=== PATIENT | female | born 1955 | race Caucasian/White ===

== ENCOUNTER 2019-02-02 21:28 | Emergency (ER) | payer MEDICAID ==
[~2019-02-02] VITALS: Ht 172.7 cm; Wt 58.2 kg
[2019-02-02 22:03] VITALS: BP 135/90
[2019-02-02] MEDS ORDERED: KETOROLAC TROMETHAMINE INJ 60 MG/2 ML VIAL IM ONE (22:59)
[2019-02-02] MEDS: KETOROLAC TROMETHAMINE INJ 60 MG/2 ML VIAL IM ONE (23:00)
[2019-02-02] MEDS ORDERED: CEPHALEXIN MONOHYDRATE 500 MG CAPSULE PO ONE (23:12)
[2019-02-02] MEDS: CEPHALEXIN MONOHYDRATE 500 MG CAPSULE PO ONE (23:15)
== END 2019-02-03 00:40 | disposition home or self-care (01) ==
LOC: ER 21:28
DX: Z48.01 Encounter for change or removal of surgical wound dressing (principal); R50.9 Fever, unspecified; Z98.890 Other specified postprocedural states; Z59.0 Homelessness
CPT/HCPCS: 96372; 99283; J1885

== ENCOUNTER 2019-07-05 02:39 | Inpatient (IN) | payer MEDICAID ==
[~2019-07-05] VITALS: Ht 170.2 cm; Wt 54.9 kg
[2019-07-05] MEDS ORDERED: VANCOMYCIN 1 GM VIAL ONE (02:59)
[2019-07-05] MEDS ORDERED: VANCOMYCIN 1 GM in IV D5W 250 ML IV ONE (03:00)
[2019-07-05] MEDS ORDERED: ONDANSETRON HCL/PF 4 MG/2 ML VIAL IVP ONE (03:00)
[2019-07-05] MEDS ORDERED: IV NS 0.9% 1,000 ML BAG IV ONE (03:00)
--- NOTE | 2019-07-05 03:40 | NUR ---
wound culture collected and sent to the lab
[2019-07-05] MEDS ORDERED: ONDANSETRON HCL/PF 4 MG/2 ML VIAL ONE (03:42)
--- NOTE | 2019-07-05 03:42 | NUR ---
MS 311-1
[2019-07-05] MEDS ORDERED: MORPHINE SULFATE INJ 2 MG/ML DISP.SYRIN ONE (03:43)
[2019-07-05 03:51] LABS: BASOPHILS # (AUTO) 0.1 /CMM (0.0-0.2); BASOPHILS % (AUTO) 0.5 % (0.0-2.0); HEMATOCRIT 34 % (33-45); HEMOGLOBIN 11.3 g/dL (11.5-14.8); LYMPHOCYTES # (AUTO) 0.7 /CMM (0.8-4.8); LYMPHOCYTES % (AUTO) 5.4 % (20.0-44.0); MEAN CORPUSCULAR HGB CONC 33 g/dl (31.0-36.0); MEAN CORPUSCULAR VOLUME 89 fL (82-100); MONOCYTES # (AUTO) 1.2 /CMM (0.1-1.30); MONOCYTES % (AUTO) 10.2 % (2.0-12.0); NEUTROPHILS # (AUTO) 10.2 /CMM (1.8-8.9); NEUTROPHILS % (AUTO) 82.9 % (43.0-81.0); PLATELET COUNT (AUTO) 422 /CMM (150-450); RED BLOOD CELL COUNT(AUTO) 3.79 MIL/uL (4.0-5.2); WHITE BLOOD COUNT (AUTO) 12.3 K/uL (4.3-11.0)
[2019-07-05 03:53] LABS: CALCIUM, SERUM 9.6 mg/dL (8.5-10.1); POTASSIUM 3.5 mmol/L (3.5-5.1)
[2019-07-05] MEDS ORDERED: MORPHINE SULFATE INJ 2 MG/ML DISP.SYRIN IV ONE (04:00)
[2019-07-05 04:07] LABS: ALBUMIN 2.6 g/dL (3.4-5.0); BILIRUBIN,DIRECT 0.1 mg/dL (0.0-0.2); BILIRUBIN,TOTAL 0.4 mg/dL (0.2-1.0); TOTAL PROTEIN, SERUM 7.4 g/dL (6.4-8.2)
--- NOTE | 2019-07-05 04:08 | NUR ---
REPORT GIVEN TO LYDIA BHARDWAJ
[2019-07-05] MEDS ORDERED: IV NS 0.9% 1,000 ML IV PRN (04:15)
[2019-07-05 04:30] VITALS: BP 105/66
[2019-07-05] MEDS ORDERED: MAG HYDROX/AL HYDROX/SIMETH 30 ML UDC PO PRN (04:30)
[2019-07-05] MEDS ORDERED: MORPHINE SULFATE INJ 2 MG/ML DISP.SYRIN IV PRN (04:30)
[2019-07-05] MEDS ORDERED: MAGNESIUM HYDROXIDE 30 ML UDC PO PRN (04:30)
[2019-07-05] MEDS ORDERED: ACETAMINOPHEN 325 MG TABLET PO PRN (04:30)
[2019-07-05] MEDS ORDERED: HYDROCODONE/APAP 5/325MG 1 EACH TABLET PO PRN (04:30)
[2019-07-05] MEDS ORDERED: Z GUARD REMEDY 2 OZ OINT TP PRN (04:30)
[2019-07-05] MEDS ORDERED: ONDANSETRON HCL/PF 4 MG/2 ML VIAL IVP PRN (04:30)
--- NOTE | 2019-07-05 04:31 | NUR ---
pt was transferred to the third in stable condition
[2019-07-05] MEDS ORDERED: CEFTRIAXONE 1 G VIAL ONE ×2 (05:15→05:17)
[2019-07-05 05:17] LABS: MAGNESIUM 2.2 mg/dL (1.8-2.4); PHOSPHORUS 3.8 mg/dL (2.5-4.9)
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
[2019-07-05] MEDS ORDERED: CEFTRIAXONE 2 G in IV D5W 100 ML IV SCH (06:00)
[2019-07-05] MEDS ORDERED: FEE PK DOSING 1 MIN EA MC ONE (06:27)
[2019-07-05] MEDS ORDERED: FERR325T23 PO (07:21)
[2019-07-05] MEDS ORDERED: ALBU18HF2 INH (07:21)
[2019-07-05] MEDS ORDERED: FLUT1BLS INH (07:21)
--- NOTE | 2019-07-05 07:32 | NUR ---
MS RN OPENING RECEIVED PATIENT IN BED, ASLEEP. AROUSABLE TO VERBAL AND TACTILE STIMULI. DENIES C/O PAIN NOR DISCOMFORT AT THIS TIME. NS @ 75 ML/HR INFUSING VIA IV PERIPHERAL LINE CATHERINE WELL. BED IN LOWEST POSITION, LOCKED. CALL LIGHT WITHIN REACH. BED SIDERAILS UP X2. RESTING COMFORTABLY IN BED.
[2019-07-05 08:00] VITALS: BP 75/41
[2019-07-05] MEDS ORDERED: IOHEXOL-300 100 ML VIAL IV ONE (09:38)
[2019-07-05] MEDS ORDERED: CT SWABBABLE VALVE TRANS SET 1 EA INFUS.SET MC ONE (09:38)
[2019-07-05] MEDS ORDERED: IV NS 0.9% 250 ML IV ONE (09:39)
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
[2019-07-05] MEDS ORDERED: VANCOMYCIN 0.75 GM in IV D5W 250 ML IV SCH (16:00)
--- NOTE | 2019-07-08 15:09 | NUR ---
Water Purifier Operator Consultation requested over the weekend by Dr. Sukhi Barcenas for Homelessness. SW unable to assess patient as pt. left AMA 07/05 and SW not available over the Holiday weekend.
== END 2019-07-05 12:40 | disposition left against medical advice (07) | DRG 383 ==
LOC: ER 02:41 → MED 04:20
PROVIDERS: ADMIT Internal Medicine; ATTEND Internal Medicine
DX: L03.317 Cellulitis of buttock (principal); N17.0 Acute kidney failure with tubular necrosis; E43 Unspecified severe protein-calorie malnutrition; G93.41 Metabolic encephalopathy; E86.1 Hypovolemia; L02.31 Cutaneous abscess of buttock; Z59.0 Homelessness; E87.1 Hypo-osmolality and hyponatremia; D63.8 Anemia in other chronic diseases classified elsewhere; Z68.1 Body mass index [BMI] 19.9 or less, adult; E88.09 Other disorders of plasma-protein metabolism, not elsewhere classified; J44.9 Chronic obstructive pulmonary disease, unspecified; F17.210 Nicotine dependence, cigarettes, uncomplicated
CPT/HCPCS: 36415; 80048-TC; 80076-TC; 83605-TC; 83735-TC; 84100-TC; 85025-TC; 85730-TC; 87040-TC; 87070-TC; 87081-TC; A6253; A6403; G0378; J0696; J2270; J2405; J3370; J7030; J7050; J7060; Q9967

== ENCOUNTER 2019-07-10 21:24 | Emergency (ER) | payer MEDICAID ==
[~2019-07-10] VITALS: Ht 172.7 cm; Wt 55.3 kg
[~2019-07-10 21:24] MED LIST: ALBU18HF2 INH; FERR325T23 PO; FLUT1BLS INH
[2019-07-10 21:25] VITALS: BP 142/76
[2019-07-10] MEDS ORDERED: IBUPROFEN 600 MG TABLET PO ONE (22:42)
[2019-07-10] MEDS ORDERED: CEPHALEXIN MONOHYDRATE 500 MG CAPSULE PO ONE (22:42)
[2019-07-10] MEDS ORDERED: SULFAMETH/TRIMETH 800/160 MG 1 UDTAB TABLET ONE (22:43)
[2019-07-10] MEDS: IBUPROFEN 600 MG TABLET PO ONE (22:46)
[2019-07-10] MEDS: CEPHALEXIN MONOHYDRATE 500 MG CAPSULE PO ONE (22:46)
[2019-07-10] MEDS: SULFAMETH/TRIMETH 800/160 MG 1 UDTAB TABLET PO ONE (22:46)
== END 2019-07-10 22:57 | disposition home or self-care (01) ==
LOC: ER 21:29
DX: L02.31 Cutaneous abscess of buttock (principal); L03.317 Cellulitis of buttock; F17.200 Nicotine dependence, unspecified, uncomplicated; F11.10 Opioid abuse, uncomplicated; Z59.0 Homelessness; Z98.890 Other specified postprocedural states; Z79.899 Other long term (current) drug therapy
CPT/HCPCS: 99284; 99406; A6253

== ENCOUNTER 2019-09-27 21:18 | Emergency (ER) | payer MEDICAID ==
[~2019-09-27] VITALS: Ht 172.7 cm; Wt 54.4 kg
[2019-09-27 21:30] VITALS: BP 124/63
[2019-09-27] MEDS ORDERED: SULFAMETH/TRIMETH 800/160 MG 1 UDTAB TABLET PO ONE (22:30)
[2019-09-27] MEDS ORDERED: IBUPROFEN 600 MG TABLET PO ONE ×2 (22:30→22:41)
[2019-09-27] MEDS ORDERED: ACETAMINOPHEN 325 MG TABLET PO ONE (22:30)
[2019-09-27] MEDS ORDERED: CEPHALEXIN MONOHYDRATE 500 MG CAPSULE PO ONE ×2 (22:30→22:41)
[2019-09-27] MEDS ORDERED: ACETAMINOPHEN 325 MG TABLET ONE (22:41)
[2019-09-27] MEDS ORDERED: SULFAMETH/TRIMETH 800/160 MG 1 UDTAB TABLET ONE (22:42)
--- NOTE | 2019-09-27 23:46 | NUR ---
Patient discharged to home in stable condition. Written and verbal after care instructions given. Patient verbalizes understanding of instruction. Pt ambulatory with a steady gait. Homeless waiver signed by pt.
== END 2019-09-27 23:47 | disposition home or self-care (01) ==
LOC: ER 21:20
DX: L02.211 Cutaneous abscess of abdominal wall (principal); F11.20 Opioid dependence, uncomplicated; F17.200 Nicotine dependence, unspecified, uncomplicated; Z79.899 Other long term (current) drug therapy; Z98.890 Other specified postprocedural states; Z59.0 Homelessness; Z96.641 Presence of right artificial hip joint
CPT/HCPCS: 99284; A6253 ×2

== ENCOUNTER 2020-10-09 13:47 | Emergency (ER) | payer MEDICAID ==
[~2020-10-09] VITALS: Ht 167.6 cm; Wt 54.4 kg
[2020-10-09 13:58] VITALS: BP 114/88
[2020-10-09] MEDS ORDERED: SULF1TAB48 PO (14:11)
[2020-10-09] MEDS ORDERED: MUPI22OI2 TP (14:11)
--- NOTE | 2020-10-09 14:30 | NUR ---
Social Service here to see patient - Pt refusing Homeless Placement Declination form signed and pt opting to go back to previous Living condition. Brown Bagged sandwich/juice/water given
[2020-10-09] MEDS ORDERED: SULFAMETH/TRIMETH 800/160 MG 1 UDTAB TABLET ONE (14:32)
[2020-10-09] MEDS: SULFAMETH/TRIMETH 800/160 MG 1 UDTAB TABLET PO ONE (14:34)
--- NOTE | 2020-10-09 15:10 | NUR ---
Patient discharged to home in stable condition. Written and verbal after care instructions given. Patient verbalizes understanding of instruction.
--- NOTE | 2020-10-09 16:41 | NUR ---
Social Service Note: SS consult requested per ED staff for homelessness and methamphetamine use. Pt is a 65 year old female who presents in pain and disorganized. Upon evaluation pt appears to be alert and oriented x3. Pt appears to be disheveled and malodorous. SW met with the pt at bedside and SW offered half-way resources to the patient and encouraged her to utilize resources. Pt denies current suicidal ideation and denies any history of mental illness. Pt stated that she had been admitted this morning and "used meth this morning." SW provided substance use referrals for the patient. SW discussed the patient D/C plan and pt stated that she would be going to the "EBT office on [address]" once she was D/C. Pt was provided with the Homeless Waiver and signed the form. SW placed the homeless waiver and the substance use referrals in the chart.
== END 2020-10-09 15:10 | disposition home or self-care (01) ==
LOC: ER 13:53
DX: L98.499 Non-pressure chronic ulcer of skin of other sites with unspecified severity (principal); L03.221 Cellulitis of neck; F17.200 Nicotine dependence, unspecified, uncomplicated; Z59.0 Homelessness; Z98.890 Other specified postprocedural states; Z79.899 Other long term (current) drug therapy

== ENCOUNTER 2020-11-14 10:25 | Emergency (ER) | payer MEDICAID ==
[~2020-11-14] VITALS: Ht 157.5 cm; Wt 54.4 kg
[~2020-11-14 10:25] MED LIST changes: +MUPI22OI2 TP; +SULF1TAB48 PO
[2020-11-14 11:20] VITALS: BP 106/64
--- NOTE | 2020-11-14 13:00 | NUR ---
Called No response
--- NOTE | 2020-11-14 13:30 | NUR ---
Called No response
--- NOTE | 2020-11-14 13:57 | NUR ---
Multiple calls NO response Eloped
== END 2020-11-14 13:57 | disposition home or self-care (01) ==
LOC: ER 10:36
DX: Z53.21 Procedure and treatment not carried out due to patient leaving prior to being seen by health care provider (principal); Z98.890 Other specified postprocedural states